=== PATIENT | female | born 1940 | race Asian ===

== ENCOUNTER 2021-02-24 14:34 | Inpatient (IN) | payer MEDICARE ==
[~2021-02-24] VITALS: Ht 149.9 cm; Wt 53.5 kg
[2021-02-24] MEDS ORDERED: 0.9% SODIUM CHLORIDE 10 ML SYRINGE IVP PRN (15:00)
[2021-02-24] MEDS ORDERED: ALBUTEROL SULFATE HFA 90 MCG/PUFF 8 GM INHALER IH ONE (15:00)
[2021-02-24 15:02] LABS: ABG BASE EXCESS 7.9 mmol/L (-2.0-3.0); ABG CARBOXYHEMOGLOBIN 0.3 % (0.0-1.5); ABG HCO3 31.2 mmol/L (22.0-26.0); ABG METHEMOGLOBIN 0.1 % (0.0-1.5); ABG OXYGEN CONTENT 13.7 mL/dL (15.0-23.0); ABG OXYGEN SATURATION 98.4 % (95.0-98.0); ABG PCO2 38 mmHg (35-45); ABG PH 7.523 (7.35-7.450); ABG TOTAL HEMOGLOBIN 9.7 G/dL (12.0-18.0); PO2, ARTERIAL BG 145.1 mmHg (66.0-74.0); SOURCE, BLOOD GAS ARTERIAL; TEMPERATURE, FAHRENHEIT, BG 98.6 FAHREN (96.0-98.6)
[2021-02-24 15:03] LABS: O2 DEVICE,BLOOD GAS CANNULA (ROOM AIR); SITE, BLOOD GAS RT RADIAL
[2021-02-24 15:33] LABS: BASOPHILS % (AUTO) 1.9 % (0.0-2.0); EOSINOPHILS % (AUTO) 1.6 % (1.0-6.0); HEMATOCRIT 26.8 % (36-46); HEMOGLOBIN 9.2 g/dL (12.0-16.0); LYMPHOCYTES # (AUTO) 0.6 K/uL (1.0-4.8); LYMPHOCYTES % (AUTO) 22.9 % (22.0-44.0); MEAN CORPUSCULAR HEMOGLOBIN 33.8 pg (26.0-34.0); MEAN CORPUSCULAR HGB CONC 34.5 G/dL (31.0-37.0); MEAN CORPUSCULAR VOLUME 98 fL (80-100); MONOCYTES # (AUTO) 0.1 K/uL (0.1-1.0); MONOCYTES % (AUTO) 5.4 % (2.0-9.0); NEUTROPHILS # (AUTO) 1.9 K/uL (1.8-7.7); NEUTROPHILS % (AUTO) 68.2 % (40.0-70.0); PLATELET COUNT (AUTO) 163 K/uL (150-450); RED BLOOD CELL COUNT(AUTO) 2.73 MIL/uL (4.00-5.20); RED CELL DISTRIBUTION WIDTH 13.4 % (11.5-14.5)
[2021-02-24 15:58] LABS: LACTIC ACID 0.8 mmol/L (0.4-2.0)
[2021-02-24 15:59] LABS: COVID AG,FIA SOURCE NASOPHARYNGEAL
[2021-02-24 16:04] LABS: D-DIMER 0.4 mg/L FEU (0.00-0.50); INR 1.1 (0.9-1.1); PROTHROMBIN TIME 11.5 SEC (9.4-11.6)
[2021-02-24 16:08] LABS: B-TYPE NATRIURETIC PEPTIDE 50 pg/mL (0-100)
[2021-02-24 16:32] LABS: ALANINE AMINOTRANSFERASE 36 U/L (12-78); ALBUMIN 3.7 g/dL (3.4-5.0); ALKALINE PHOSPHATASE 51 U/L (46-116); ANION GAP 10 mmol/L (8-16); ASPARTATE AMINOTRANSFERASE 80 U/L (15-37); BILIRUBIN,TOTAL 0.7 mg/dL (0.1-1.0); CALCIUM, TOTAL 9.5 mg/dL (8.8-10.5); CARBON DIOXIDE 29 mmol/L (22-29); CHLORIDE 104 mmol/L (98-107); CREATININE 1.78 mg/dL (0.60-1.30); GLOMERULAR FILTR. RATE CALC 27 mL/min (>60); GLUCOSE,RANDOM 116 mg/dL (70-110); SODIUM SERUM 143 mmol/L (136-145); TOTAL PROTEIN, SERUM 6.6 g/dL (6.4-8.2); UREA NITROGEN, BLOOD 15 mg/dL (7-18)
[2021-02-24 16:34] LABS: AMPHET/METH SCREEN,URINE NEGATIVE (NEGATIVE); BARBITURATE SCREEN, URINE NEGATIVE (NEGATIVE); BENZODIAZEPINES SCREEN,URINE NEGATIVE (NEGATIVE); CANNABINOID SCREEN,URINE NEGATIVE (NEGATIVE); COCAINE SCREEN,URINE NEGATIVE (NEGATIVE); METHADONE SCREEN, URINE NEGATIVE (NEGATIVE); OPIATE SCREEN,URINE NEGATIVE (NEGATIVE)
[2021-02-24 16:34] LABS: POTASSIUM 2.3 mmol/L (3.5-5.1)
[2021-02-24 16:42] LABS: APPEARANCE,URINE CLOUDY (CLEAR); GLUCOSE, URINE (UA) NEGATIVE (NEGATIVE); KETONES,URINE TRACE mg/dL (NEGATIVE); LEUKOCYTE ESTERASE ,URINE LARGE (NEGATIVE); NITRATE,URINE NEGATIVE (NEGATIVE); OCCULT BLOOD,URINE TRACE (NEGATIVE); PROTEIN,URINE POS 1+ (NEGATIVE); UROBILINOGEN,URINE 0.2 mg/dL (<=1.0)
[2021-02-24 16:43] LABS: CREATINE KINASE, TOTAL ONLY 1274 U/L (26-192)
[2021-02-24 16:46] LABS: BILIRUBIN,URINE PRELIM. POSITIVE (NEGATIVE)
[2021-02-24 16:47] LABS: PHENCYCLIDINE SCREEN,URINE NEGATIVE (NEGATIVE)
[2021-02-24 16:52] LABS: HCG,QUANTITATIVE 2 mIU/mL (0-6)
[2021-02-24] MEDS ORDERED: POTASSIUM CHLORIDE 10% 40 MEQ/30 ML LIQUID UDCUP PO ONE (17:00)
[2021-02-24] MEDS: POTASSIUM CHL 10 MEQ/WATER 50 ML IV SCH ×3 (17:34→22:02)
[2021-02-24 17:49] LABS: RENAL EPITHELIAL CELLS,URINE Few /LPF (None Seen)
[2021-02-24 17:50] LABS: BACTERIA,URINE Many /HPF (None Seen); RBC,URINE 0-2 /HPF (0-2); WBC,URINE 26-50 /HPF (0-5)
[2021-02-24 17:53] LABS: INFLUENZA TYPE A NEGATIVE FOR TYPE A (NEGATIVE); INFLUENZA TYPE B NEGATIVE FOR TYPE B (NEGATIVE)
[2021-02-24] MEDS ORDERED: ACETAMINOPHEN 325 MG TABLET PO PRN (18:00)
[2021-02-24] MEDS: SODIUM CHLORIDE 0.9% 1,000 ML IV SCH (18:07)
[2021-02-24] MEDS: CefTRIAXone 1 GM/DEXTROSE 50 ML IV SCH (18:08)
[2021-02-24] MEDS: HEPARIN SODIUM,PORCINE 5,000 UNITS/ML VIAL SQ SCH (22:01)
[2021-02-24] MEDS: DOCUSATE SODIUM 100 MG CAPSULE PO SCH (22:01)
[2021-02-24 22:53] VITALS: BP 169/79
[2021-02-25] MEDS ORDERED: PNEUMOCOCCAL VACCINE POLYVALENT 0.5 ML VIAL [PPSV23] IM. ONE (02:00)
[2021-02-25] MEDS ORDERED: INFLUENZA VIRUS VACCINE QVS 2021-22 (6MO+)/PF 60 MCG/0.5 ML SYRINGE IM. ONE (02:00)
[2021-02-25 04:00] VITALS: BP 139/79
[2021-02-25 06:44] LABS: BASOPHILS % (AUTO) 0.9 % (0.0-2.0); EOSINOPHILS % (AUTO) 1.5 % (1.0-6.0); HEMATOCRIT 30.6 % (36-46); HEMOGLOBIN 10.5 g/dL (12.0-16.0); LYMPHOCYTES # (AUTO) 0.8 K/uL (1.0-4.8); LYMPHOCYTES % (AUTO) 17.2 % (22.0-44.0); MEAN CORPUSCULAR HEMOGLOBIN 33.9 pg (26.0-34.0); MEAN CORPUSCULAR HGB CONC 34.3 G/dL (31.0-37.0); MEAN CORPUSCULAR VOLUME 99 fL (80-100); MONOCYTES # (AUTO) 0.2 K/uL (0.1-1.0); MONOCYTES % (AUTO) 4.6 % (2.0-9.0); NEUTROPHILS # (AUTO) 3.4 K/uL (1.8-7.7); NEUTROPHILS % (AUTO) 75.8 % (40.0-70.0); PLATELET COUNT (AUTO) 175 K/uL (150-450); RED CELL DISTRIBUTION WIDTH 13.1 % (11.5-14.5)
[2021-02-25 07:08] VITALS: BP 159/81
[2021-02-25 07:27] LABS: CALCIUM, TOTAL 8.8 mg/dL (8.8-10.5); CREATININE 1.33 mg/dL (0.60-1.30); POTASSIUM 3.2 mmol/L (3.5-5.1)
[2021-02-25] MEDS: DOCUSATE SODIUM 100 MG CAPSULE PO SCH ×2 (08:33→20:24)
[2021-02-25] MEDS: FAMOTIDINE 20 MG TABLET PO SCH (08:33)
[2021-02-25] MEDS: HEPARIN SODIUM,PORCINE 5,000 UNITS/ML VIAL SQ SCH ×2 (08:34→20:25)
[2021-02-25] MEDS: SODIUM CHLORIDE 0.9% 1,000 ML IV SCH ×2 (08:34→23:45)
[2021-02-25] MEDS ORDERED: POTASSIUM CHLORIDE 20 MEQ ER TABLET PO ONE (09:45)
[2021-02-25] MEDS: AmLODIPine BESYLATE 5 MG TABLET PO SCH (10:17)
[2021-02-25 11:59] VITALS: BP 145/75
[2021-02-25 15:19] VITALS: BP 152/77
[2021-02-25] MEDS: CefTRIAXone 1 GM/DEXTROSE 50 ML IV SCH (17:20)
[2021-02-25 19:47] VITALS: BP 153/85
[2021-02-26 00:20] VITALS: BP 136/80
[2021-02-26 03:54] VITALS: BP 142/67
[2021-02-26 08:00] VITALS: BP 164/68
[2021-02-26 08:27] LABS: BASOPHILS % (AUTO) 0.7 % (0.0-2.0); EOSINOPHILS % (AUTO) 3.9 % (1.0-6.0); HEMATOCRIT 32.5 % (36-46); HEMOGLOBIN 11.3 g/dL (12.0-16.0); LYMPHOCYTES # (AUTO) 1.2 K/uL (1.0-4.8); LYMPHOCYTES % (AUTO) 30.1 % (22.0-44.0); MEAN CORPUSCULAR HEMOGLOBIN 34.1 pg (26.0-34.0); MEAN CORPUSCULAR HGB CONC 34.7 G/dL (31.0-37.0); MEAN CORPUSCULAR VOLUME 99 fL (80-100); MONOCYTES # (AUTO) 0.2 K/uL (0.1-1.0); MONOCYTES % (AUTO) 4.7 % (2.0-9.0); NEUTROPHILS # (AUTO) 2.5 K/uL (1.8-7.7); NEUTROPHILS % (AUTO) 60.6 % (40.0-70.0); PLATELET COUNT (AUTO) 174 K/uL (150-450); RED CELL DISTRIBUTION WIDTH 13.1 % (11.5-14.5)
[2021-02-26 08:41] LABS: CALCIUM, TOTAL 8.7 mg/dL (8.8-10.5); CREATININE 1.16 mg/dL (0.60-1.30); POTASSIUM 3.4 mmol/L (3.5-5.1)
[2021-02-26] MEDS: DOCUSATE SODIUM 100 MG CAPSULE PO SCH ×2 (09:31→20:16)
[2021-02-26] MEDS: FAMOTIDINE 20 MG TABLET PO SCH (09:31)
[2021-02-26] MEDS: AmLODIPine BESYLATE 5 MG TABLET PO SCH (09:32)
[2021-02-26] MEDS: HEPARIN SODIUM,PORCINE 5,000 UNITS/ML VIAL SQ SCH ×2 (09:32→20:16)
[2021-02-26] MEDS ORDERED: POTASSIUM PHOS,M-BASIC-D-BASIC 20 MEQ in DEXTROSE 5%-WATER 100 ML IV ONE (13:00)
[2021-02-26 17:38] VITALS: BP 145/81
[2021-02-26] MEDS ORDERED: SODIUM,POTASSIUM PHOSPHATES POWDER PACKET PO ONE (18:45)
[2021-02-26 19:16] VITALS: BP 128/99
[2021-02-26] MEDS: CefTRIAXone SODIUM 1 GM/VIAL IM SCH (20:16)
[2021-02-26] MEDS: LIDOCAINE/PF 1% 2 ML VIAL IM SCH (20:16)
[2021-02-26] MEDS ORDERED: LORazepam 2 MG/ML VIAL IM PRN (20:30)
[2021-02-27] VITALS (7 sets, daily range): BP systolic 122–155; BP diastolic 61–80
[2021-02-27] MEDS: LORazepam 1 MG TABLET PO PRN (08:03)
[2021-02-27] MEDS: FAMOTIDINE 20 MG TABLET PO SCH (08:03)
[2021-02-27] MEDS: DOCUSATE SODIUM 100 MG CAPSULE PO SCH ×2 (08:03→21:00)
[2021-02-27] MEDS: AmLODIPine BESYLATE 5 MG TABLET PO SCH (08:03)
[2021-02-27] MEDS: HEPARIN SODIUM,PORCINE 5,000 UNITS/ML VIAL SQ SCH ×2 (08:03→21:00)
[2021-02-27] MEDS: CefTRIAXone SODIUM 1 GM/VIAL IM SCH (08:04)
[2021-02-27] MEDS: LIDOCAINE/PF 1% 2 ML VIAL IM SCH (08:04)
[2021-02-28 04:06] VITALS: BP 125/72
[2021-02-28 07:38] VITALS: BP 149/71
[2021-02-28] MEDS: AmLODIPine BESYLATE 5 MG TABLET PO SCH (08:38)
[2021-02-28] MEDS: DOCUSATE SODIUM 100 MG CAPSULE PO SCH ×2 (08:38→20:41)
[2021-02-28] MEDS: FAMOTIDINE 20 MG TABLET PO SCH (08:38)
[2021-02-28] MEDS: HEPARIN SODIUM,PORCINE 5,000 UNITS/ML VIAL SQ SCH ×2 (08:38→20:41)
[2021-02-28 09:16] LABS: BASOPHILS % (AUTO) 1.1 % (0.0-2.0); EOSINOPHILS % (AUTO) 3.3 % (1.0-6.0); HEMATOCRIT 33.4 % (36-46); HEMOGLOBIN 11.5 g/dL (12.0-16.0); LYMPHOCYTES # (AUTO) 1.1 K/uL (1.0-4.8); LYMPHOCYTES % (AUTO) 28.8 % (22.0-44.0); MEAN CORPUSCULAR HEMOGLOBIN 33.7 pg (26.0-34.0); MEAN CORPUSCULAR HGB CONC 34.5 G/dL (31.0-37.0); MEAN CORPUSCULAR VOLUME 98 fL (80-100); MONOCYTES # (AUTO) 0.2 K/uL (0.1-1.0); MONOCYTES % (AUTO) 5.4 % (2.0-9.0); NEUTROPHILS # (AUTO) 2.3 K/uL (1.8-7.7); NEUTROPHILS % (AUTO) 61.4 % (40.0-70.0); PLATELET COUNT (AUTO) 200 K/uL (150-450); RED BLOOD CELL COUNT(AUTO) 3.42 MIL/uL (4.00-5.20); RED CELL DISTRIBUTION WIDTH 13.1 % (11.5-14.5)
[2021-02-28 09:30] LABS: CALCIUM, TOTAL 9.5 mg/dL (8.8-10.5); CREATININE 1.16 mg/dL (0.60-1.30); POTASSIUM 3.7 mmol/L (3.5-5.1)
[2021-02-28 11:15] VITALS: BP 123/63
[2021-02-28] MEDS: LEVOTHYROXINE SODIUM 50 MCG TABLET PO SCH (11:16)
[2021-02-28 15:03] LABS: FREE T4 (FREE THYROXINE) 0.16 ng/dL (0.76-1.46)
[2021-02-28 15:18] VITALS: BP 129/58
[2021-02-28] MEDS ORDERED: LEVOTHYROXINE SODIUM 50 MCG TABLET PO ONE (17:00)
[2021-02-28 19:23] VITALS: BP 137/75
[2021-03-01 00:13] VITALS: BP 139/53
[2021-03-01 05:10] VITALS: BP 156/82
[2021-03-01] MEDS: LEVOTHYROXINE SODIUM 50 MCG TABLET PO SCH (06:20)
[2021-03-01 08:27] VITALS: BP 158/74
[2021-03-01] MEDS: HEPARIN SODIUM,PORCINE 5,000 UNITS/ML VIAL SQ SCH ×2 (09:00→20:08)
[2021-03-01] MEDS: AmLODIPine BESYLATE 5 MG TABLET PO SCH (09:19)
[2021-03-01] MEDS: FAMOTIDINE 20 MG TABLET PO SCH (09:19)
[2021-03-01] MEDS: DOCUSATE SODIUM 100 MG CAPSULE PO SCH ×2 (09:19→19:32)
[2021-03-01 11:21] LABS: EOSINOPHILS % (AUTO) 4.5 % (1.0-6.0); HEMATOCRIT 33.1 % (36-46); HEMOGLOBIN 11.4 g/dL (12.0-16.0); LYMPHOCYTES # (AUTO) 0.8 K/uL (1.0-4.8); LYMPHOCYTES % (AUTO) 30.3 % (22.0-44.0); MEAN CORPUSCULAR HEMOGLOBIN 33.5 pg (26.0-34.0); MEAN CORPUSCULAR HGB CONC 34.3 G/dL (31.0-37.0); MEAN CORPUSCULAR VOLUME 98 fL (80-100); MONOCYTES # (AUTO) 0.2 K/uL (0.1-1.0); MONOCYTES % (AUTO) 6.3 % (2.0-9.0); NEUTROPHILS # (AUTO) 1.5 K/uL (1.8-7.7); NEUTROPHILS % (AUTO) 57.9 % (40.0-70.0); PLATELET COUNT (AUTO) 202 K/uL (150-450); RED BLOOD CELL COUNT(AUTO) 3.39 MIL/uL (4.00-5.20); RED CELL DISTRIBUTION WIDTH 13.4 % (11.5-14.5)
[2021-03-01 12:05] LABS: ALBUMIN 3.6 g/dL (3.4-5.0); BILIRUBIN,TOTAL 0.4 mg/dL (0.1-1.0); CALCIUM, TOTAL 9.1 mg/dL (8.8-10.5); CREATININE 1.32 mg/dL (0.60-1.30); POTASSIUM 3.4 mmol/L (3.5-5.1); TOTAL PROTEIN, SERUM 7.3 g/dL (6.4-8.2)
[2021-03-01 16:17] VITALS: BP 139/81
[2021-03-01] MEDS ORDERED: POTASSIUM CHLORIDE 20 MEQ ER TABLET PO ONE (17:15)
[2021-03-01] MEDS ORDERED: HALOPERIDOL LACTATE 5 MG/ML VIAL IM ONE (19:15)
[2021-03-01] MEDS ORDERED: LORazepam 2 MG/ML VIAL IM ONE (19:15)
[2021-03-01] MEDS ORDERED: DiphenhydrAMINE HCL 50 MG/ML VIAL IM ONE (19:15)
[2021-03-01 19:40] VITALS: BP 138/73
[2021-03-01] MEDS: TraZODone HCL 50 MG TABLET PO PRN (21:07)
[2021-03-02] MEDS: LORazepam 1 MG TABLET PO PRN ×3 (02:58→21:19)
[2021-03-02 04:30] VITALS: BP 147/86
[2021-03-02] MEDS: LEVOTHYROXINE SODIUM 50 MCG TABLET PO SCH (05:22)
[2021-03-02 08:31] VITALS: BP 139/85
[2021-03-02] MEDS: HEPARIN SODIUM,PORCINE 5,000 UNITS/ML VIAL SQ SCH ×3 (09:00→21:19)
[2021-03-02] MEDS: FAMOTIDINE 20 MG TABLET PO SCH (09:23)
[2021-03-02] MEDS: AmLODIPine BESYLATE 5 MG TABLET PO SCH (09:23)
[2021-03-02] MEDS: DOCUSATE SODIUM 100 MG CAPSULE PO SCH ×2 (09:23→21:19)
[2021-03-02 14:54] LABS: CREATININE 1.26 mg/dL (0.60-1.30); THYROID STIMULATING HORMONE 109.7 uIU/mL (0.36-3.74)
[2021-03-02] MEDS ORDERED: POTASSIUM CHLORIDE 20 MEQ ER TABLET PO ONE (17:45)
[2021-03-02 18:58] VITALS: BP 142/74
[2021-03-02 19:10] VITALS: BP 149/89
[2021-03-02] MEDS: TraZODone HCL 50 MG TABLET PO PRN (21:19)
[2021-03-03] MEDS ORDERED: POTASSIUM CHLORIDE 20 MEQ ER TABLET PO ONE (00:15)
[2021-03-03 04:10] VITALS: BP 147/70
[2021-03-03] MEDS: LEVOTHYROXINE SODIUM 100 MCG TABLET PO SCH (05:21)
[2021-03-03 07:31] VITALS: BP 142/74
[2021-03-03] MEDS: HEPARIN SODIUM,PORCINE 5,000 UNITS/ML VIAL SQ SCH ×2 (10:52→19:52)
[2021-03-03] MEDS: AmLODIPine BESYLATE 5 MG TABLET PO SCH (10:52)
[2021-03-03] MEDS: DOCUSATE SODIUM 100 MG CAPSULE PO SCH ×2 (10:52→19:51)
[2021-03-03] MEDS: FAMOTIDINE 20 MG TABLET PO SCH (10:52)
[2021-03-03 15:14] VITALS: BP 141/76
[2021-03-03 19:05] VITALS: BP 144/67
[2021-03-04 05:00] VITALS: BP 136/71
[2021-03-04] MEDS: LEVOTHYROXINE SODIUM 100 MCG TABLET PO SCH (05:33)
[2021-03-04] MEDS: HEPARIN SODIUM,PORCINE 5,000 UNITS/ML VIAL SQ SCH ×2 (09:03→20:01)
[2021-03-04] MEDS: DOCUSATE SODIUM 100 MG CAPSULE PO SCH ×2 (09:04→20:01)
[2021-03-04] MEDS: FAMOTIDINE 20 MG TABLET PO SCH (09:05)
[2021-03-04] MEDS: AmLODIPine BESYLATE 5 MG TABLET PO SCH (09:11)
[2021-03-04 09:19] VITALS: BP 150/81
[2021-03-04 17:45] VITALS: BP 146/77
[2021-03-04 19:26] VITALS: BP 134/71
[2021-03-04 19:53] LABS: HEMATOCRIT 33.8 % (36-46); HEMOGLOBIN 11.8 g/dL (12.0-16.0); MEAN CORPUSCULAR HGB CONC 34.8 G/dL (31.0-37.0); MEAN CORPUSCULAR VOLUME 98 fL (80-100); PLATELET COUNT (AUTO) 189 K/uL (150-450); RED BLOOD CELL COUNT(AUTO) 3.46 MIL/uL (4.00-5.20); RED CELL DISTRIBUTION WIDTH 13.4 % (11.5-14.5)
[2021-03-04 20:01] LABS: GLUCOMETER DEV NAME(LOC) 6N.2; GLUCOSE,POINT OF CARE 86 MG/DL (70-110)
[2021-03-04] MEDS: MELATONIN 5 MG TABLET PO SCH (20:01)
[2021-03-04 20:06] LABS: BAND NEUTROPHILS % (MANUAL) 5 % (0-5); BASOPHILS % (MANUAL) 1 % (0-2); CREATININE 1.09 mg/dL (0.60-1.30); EOSINOPHILS % (MANUAL) 2 % (1-6); LYMPHOCYTES % (MANUAL) 17 % (22-44); MONOCYTES % (MANUAL) 4 % (2-9); POTASSIUM 3.9 mmol/L (3.5-5.1); SEGMENTED NEUTROPHILS % 71 % (40-70)
[2021-03-04 20:21] LABS: ALBUMIN 4.2 g/dL (3.4-5.0); BILIRUBIN,TOTAL 0.4 mg/dL (0.1-1.0); THYROID STIMULATING HORMONE 95.11 uIU/mL (0.36-3.74); TOTAL PROTEIN, SERUM 8.1 g/dL (6.4-8.2)
[2021-03-05] MEDS ORDERED: LEVOTHYROXINE SODIUM 100 MCG VIAL IVP ONE (01:00)
[2021-03-05] MEDS ORDERED: RINGERS SOLUTION,LACTATED 1,000 ML IV SCH (01:00)
[2021-03-05] MEDS ORDERED: HYDROCORTISONE SOD SUCC 100 MG/2 ML VIAL IVP ONE (01:00)
[2021-03-05 04:35] VITALS: BP 112/69
[2021-03-05 07:51] VITALS: BP 123/73
[2021-03-05] MEDS: HEPARIN SODIUM,PORCINE 5,000 UNITS/ML VIAL SQ SCH ×2 (08:42→20:12)
[2021-03-05] MEDS: LEVOTHYROXINE SODIUM 100 MCG TABLET PO SCH (08:42)
[2021-03-05] MEDS: FAMOTIDINE 20 MG TABLET PO SCH (08:42)
[2021-03-05] MEDS: AmLODIPine BESYLATE 5 MG TABLET PO SCH (08:42)
[2021-03-05] MEDS: DOCUSATE SODIUM 100 MG CAPSULE PO SCH ×2 (08:42→20:12)
[2021-03-05] MEDS: 1: MAGNESIUM SULFATE 2 GM, MVI, ADULT NO.1 WITH VIT K 10 ML, THIAMINE 100 MG, FOLIC ACID IV SCH ×10 (12:33→22:50)
[2021-03-05] MEDS: MULTIVITAMINS WITH MINERALS, THERAPEUTIC TABLET PO SCH ×2 (12:34→20:13)
[2021-03-05 15:07] VITALS: BP 144/7
[2021-03-05] MEDS: VITAMINS A & D 113 GM OINTMENT TP SCH ×2 (16:51→20:21)
[2021-03-05] MEDS: MELATONIN 5 MG TABLET PO SCH (20:12)
[2021-03-05 21:11] VITALS: BP 110/65
[2021-03-05] MEDS ORDERED: SODIUM CHLORIDE 0.9% 1,000 ML ONE (22:50)
[2021-03-05] MEDS: QUEtiapine FUMARATE 25 MG TABLET PO SCH (23:58)
[2021-03-06 04:55] VITALS: BP 138/74
[2021-03-06] MEDS: LEVOTHYROXINE SODIUM 100 MCG TABLET PO SCH (06:21)
[2021-03-06 06:53] LABS: BASOPHILS % (AUTO) 0.5 % (0.0-2.0); EOSINOPHILS % (AUTO) 0.6 % (1.0-6.0); LYMPHOCYTES % (AUTO) 22.8 % (22.0-44.0); MEAN CORPUSCULAR HGB CONC 34.8 G/dL (31.0-37.0); MEAN CORPUSCULAR VOLUME 98 fL (80-100); MONOCYTES # (AUTO) 0.3 K/uL (0.1-1.0); MONOCYTES % (AUTO) 6.2 % (2.0-9.0); NEUTROPHILS # (AUTO) 3.2 K/uL (1.8-7.7); NEUTROPHILS % (AUTO) 69.9 % (40.0-70.0); PLATELET COUNT (AUTO) 160 K/uL (150-450); RED BLOOD CELL COUNT(AUTO) 2.66 MIL/uL (4.00-5.20); RED CELL DISTRIBUTION WIDTH 13.4 % (11.5-14.5)
[2021-03-06 07:00] LABS: CALCIUM, TOTAL 8.6 mg/dL (8.8-10.5); CREATININE 1.36 mg/dL (0.60-1.30); MAGNESIUM 2.7 mg/dL (1.80-2.40); POTASSIUM 3.3 mmol/L (3.5-5.1)
[2021-03-06 07:48] VITALS: BP 135/77
[2021-03-06] MEDS: 1: MAGNESIUM SULFATE 2 GM, MVI, ADULT NO.1 WITH VIT K 10 ML, THIAMINE 100 MG, FOLIC ACID IV SCH ×5 (09:05)
[2021-03-06] MEDS: DOCUSATE SODIUM 100 MG CAPSULE PO SCH ×2 (09:06→20:29)
[2021-03-06] MEDS: FAMOTIDINE 20 MG TABLET PO SCH (09:06)
[2021-03-06] MEDS: HEPARIN SODIUM,PORCINE 5,000 UNITS/ML VIAL SQ SCH ×2 (09:06→20:29)
[2021-03-06] MEDS: AmLODIPine BESYLATE 5 MG TABLET PO SCH (09:06)
[2021-03-06] MEDS: VITAMINS A & D 113 GM OINTMENT TP SCH ×3 (09:07→20:30)
[2021-03-06] MEDS: MULTIVITAMINS WITH MINERALS, THERAPEUTIC TABLET PO SCH ×2 (09:08→20:29)
[2021-03-06] MEDS ORDERED: POTASSIUM CHLORIDE 10% 40 MEQ/30 ML LIQUID UDCUP PO ONE (11:30)
[2021-03-06 15:34] VITALS: BP 145/92
[2021-03-06 19:35] VITALS: BP 143/70
[2021-03-06] MEDS: QUEtiapine FUMARATE 25 MG TABLET PO SCH (20:29)
[2021-03-06] MEDS: MELATONIN 5 MG TABLET PO SCH (20:29)
[2021-03-07 03:39] VITALS: BP 135/69
[2021-03-07] MEDS: LEVOTHYROXINE SODIUM 100 MCG TABLET PO SCH (05:42)
[2021-03-07 08:21] VITALS: BP 125/66
[2021-03-07] MEDS: MULTIVITAMINS WITH MINERALS, THERAPEUTIC TABLET PO SCH ×2 (09:17→19:56)
[2021-03-07] MEDS: DOCUSATE SODIUM 100 MG CAPSULE PO SCH ×2 (09:17→19:56)
[2021-03-07] MEDS: FAMOTIDINE 20 MG TABLET PO SCH (09:17)
[2021-03-07] MEDS: AmLODIPine BESYLATE 5 MG TABLET PO SCH (09:17)
[2021-03-07] MEDS: HEPARIN SODIUM,PORCINE 5,000 UNITS/ML VIAL SQ SCH ×2 (09:17→19:56)
[2021-03-07] MEDS: VITAMINS A & D 113 GM OINTMENT TP SCH ×3 (09:19→21:00)
[2021-03-07 15:03] VITALS: BP 133/74
[2021-03-07 19:15] VITALS: BP 130/77
[2021-03-07] MEDS: QUEtiapine FUMARATE 25 MG TABLET PO SCH (19:56)
[2021-03-07] MEDS: MELATONIN 5 MG TABLET PO SCH (19:56)
[2021-03-08 03:35] VITALS: BP 144/81
[2021-03-08] MEDS: LEVOTHYROXINE SODIUM 100 MCG TABLET PO SCH (05:53)
[2021-03-08 08:05] VITALS: BP 127/64
[2021-03-08] MEDS: MULTIVITAMINS WITH MINERALS, THERAPEUTIC TABLET PO SCH ×2 (08:35→20:00)
[2021-03-08] MEDS: AmLODIPine BESYLATE 5 MG TABLET PO SCH (08:35)
[2021-03-08] MEDS: DOCUSATE SODIUM 100 MG CAPSULE PO SCH ×2 (08:35→20:00)
[2021-03-08] MEDS: FAMOTIDINE 20 MG TABLET PO SCH (08:35)
[2021-03-08] MEDS: HEPARIN SODIUM,PORCINE 5,000 UNITS/ML VIAL SQ SCH ×2 (08:36→20:01)
[2021-03-08] MEDS: VITAMINS A & D 113 GM OINTMENT TP SCH ×3 (08:37→20:02)
[2021-03-08 16:38] VITALS: BP 124/58
[2021-03-08 19:51] VITALS: BP 146/78
[2021-03-08] MEDS: MELATONIN 5 MG TABLET PO SCH (20:00)
[2021-03-08] MEDS: QUEtiapine FUMARATE 25 MG TABLET PO SCH (20:00)
[2021-03-09 04:42] VITALS: BP 124/67
[2021-03-09] MEDS: LEVOTHYROXINE SODIUM 100 MCG TABLET PO SCH (06:16)
[2021-03-09 07:25] VITALS: BP 122/74
[2021-03-09] MEDS: AmLODIPine BESYLATE 5 MG TABLET PO SCH (09:47)
[2021-03-09] MEDS: HEPARIN SODIUM,PORCINE 5,000 UNITS/ML VIAL SQ SCH ×2 (09:47→20:17)
[2021-03-09] MEDS: MULTIVITAMINS WITH MINERALS, THERAPEUTIC TABLET PO SCH ×2 (09:47→20:16)
[2021-03-09] MEDS: DOCUSATE SODIUM 100 MG CAPSULE PO SCH ×2 (09:47→20:16)
[2021-03-09] MEDS: FAMOTIDINE 20 MG TABLET PO SCH (09:47)
[2021-03-09] MEDS: VITAMINS A & D 113 GM OINTMENT TP SCH ×3 (09:48→20:18)
[2021-03-09 11:02] VITALS: BP 128/72
[2021-03-09 15:04] VITALS: BP 141/62
[2021-03-09 19:40] VITALS: BP 150/64
[2021-03-09] MEDS: MELATONIN 5 MG TABLET PO SCH (20:16)
[2021-03-09] MEDS: QUEtiapine FUMARATE 25 MG TABLET PO SCH (20:16)
[2021-03-10 05:01] VITALS: BP 145/79
[2021-03-10] MEDS: LEVOTHYROXINE SODIUM 100 MCG TABLET PO SCH (06:26)
[2021-03-10 06:59] LABS: BASOPHILS % (AUTO) 0.8 % (0.0-2.0); EOSINOPHILS % (AUTO) 5.2 % (1.0-6.0); HEMATOCRIT 29.3 % (36-46); HEMOGLOBIN 10.3 g/dL (12.0-16.0); LYMPHOCYTES # (AUTO) 1.4 K/uL (1.0-4.8); LYMPHOCYTES % (AUTO) 33.5 % (22.0-44.0); MEAN CORPUSCULAR HEMOGLOBIN 34.5 pg (26.0-34.0); MEAN CORPUSCULAR VOLUME 99 fL (80-100); MONOCYTES # (AUTO) 0.3 K/uL (0.1-1.0); MONOCYTES % (AUTO) 7.3 % (2.0-9.0); NEUTROPHILS # (AUTO) 2.2 K/uL (1.8-7.7); NEUTROPHILS % (AUTO) 53.2 % (40.0-70.0); PLATELET COUNT (AUTO) 161 K/uL (150-450); RED BLOOD CELL COUNT(AUTO) 2.97 MIL/uL (4.00-5.20); RED CELL DISTRIBUTION WIDTH 13.4 % (11.5-14.5)
[2021-03-10 07:16] LABS: ALBUMIN 3.8 g/dL (3.4-5.0); BILIRUBIN,TOTAL 0.4 mg/dL (0.1-1.0); CREATININE 1.23 mg/dL (0.60-1.30); POTASSIUM 4.1 mmol/L (3.5-5.1); TOTAL PROTEIN, SERUM 7.2 g/dL (6.4-8.2)
[2021-03-10 07:43] VITALS: BP 141/85
[2021-03-10] MEDS: DOCUSATE SODIUM 100 MG CAPSULE PO SCH (09:32)
[2021-03-10] MEDS: MULTIVITAMINS WITH MINERALS, THERAPEUTIC TABLET PO SCH (09:32)
[2021-03-10] MEDS: FAMOTIDINE 20 MG TABLET PO SCH (09:32)
[2021-03-10] MEDS: AmLODIPine BESYLATE 5 MG TABLET PO SCH (09:32)
[2021-03-10] MEDS: HEPARIN SODIUM,PORCINE 5,000 UNITS/ML VIAL SQ SCH (09:33)
[2021-03-10] MEDS: VITAMINS A & D 113 GM OINTMENT TP SCH ×2 (09:44→17:27)
[2021-03-10 11:08] LABS: COVID AG,FIA SOURCE NASOPHARYNGEAL
[2021-03-10 16:14] VITALS: BP 149/81
== END 2021-03-10 19:17 | DRG 91 ==
LOC: EMS 14:38 → EDBD 14:38 → 5N 20:40 → 5S 02-27 18:45 → 6S 03-01 02:20 → 6N 03-02 14:03 → 6S 03-05 21:41
PROVIDERS: ADMIT Internal Medicine; ATTEND Hospitalist
DX: G92.8 Other toxic encephalopathy (principal); E43 Unspecified severe protein-calorie malnutrition; N17.9 Acute kidney failure, unspecified; M62.82 Rhabdomyolysis; N39.0 Urinary tract infection, site not specified; I31.3 Pericardial effusion (noninflammatory); E03.9 Hypothyroidism, unspecified; E87.6 Hypokalemia; Z20.822 Contact with and (suspected) exposure to COVID-19; D64.9 Anemia, unspecified; Z68.23 Body mass index [BMI] 23.0-23.9, adult
CPT/HCPCS: 36600; 51701; 70450; 71045; 71250; 80048; 80053; 81001; 82550; 82805; 82962; 83605; 83735; 83880; 84100; 84132; 84145; 84439; 84443; 84484; 84702; 85007; 85025; 85027; 85379; 85610; 85730; 87040; 87086; 87804; 92610; 93005; 93306; 97110; 97116; 97162; 97165; 97166; 97530; 97535; 99291; G0378; G0480; J0696; J1200; J1630; J1644; J1720; J2060; J3411; J3475; J3480; J3490; J3535; J7030; J7060; J7120; Q9967; 36415-L1; 36415-TC; U0003